=== PATIENT | female | born 1945 | race Caucasian/White ===

== ENCOUNTER 2017-07-19 10:31 | Emergency (ER) | payer MEDICARE ==
[~2017-07-19] VITALS: Ht 162.6 cm; Wt 67.3 kg
[2017-07-19 10:58] VITALS: BP 144/87; PULSE 103; RESP 18; O2SAT 97
--- NOTE | 2017-07-19 11:08 | ED.REPORT ---
HPI-Extremity Problem Lower Date of Service Jul 19, 2017 ED Provider: Nati Booker History of Present Illness: started after playing golf 1 week ago. saw primary care last week 2 times. no bowel or bladder issuestaking oxycodone. yarelishudson is primary care. 08/31lives with in 2 story house.bedroom upstairs Nursing Notes Stated Complaint: LEFT LOWER QUADRANT PAIN Chief Complaint: Extremity Trauma Nursing Notes Reviewed: Yes Allergies: Coded Allergies: oxybutynin (Verified Allergy, Severe, 07/19/17) General Time Seen by MD: 11:07 Chief Complaint Hip injury left Hx Obtained From: Patient Past Medical History Past Medical History Denies: Asthma, Diabetes mellitus Past Surgical History denies Smoking History Never Smoker Social History Alcohol Use: 1-3 per week Drug Use: Denies drug use Other Social History: Occupation no work or school 07/19/2017 Ambulatory Status Independent Physical Exam Initial Vital Signs Vital Signs (First) Date Time Temp Pulse Resp B/P Pulse Ox O2 Delivery O2 Flow Rate FiO2 07/19/17 10:58 36.8 103 18 144/87 97 Room Air Interpretation & Diagnostics Lab Results Interpretation Result Diagram: 07/19/17 1140 07/19/17 1140 Test 07/19/17 11:40 White Blood Count 6.0th/mm3 (3.8-10.1) Red Blood Count 4.50mil/mm3 (3.90-5.20) Hemoglobin 13.4g/dL (12.0-15.6) Hematocrit 40.5% (35.0-46.0) Mean Corpuscular Volume 90.0fL (81-100) Mean Corpuscular Hemoglobin 29.8pg (27.0-35.0) Mean Corpuscular Hemoglobin Concent 33.1% (32.0-37.0) Red Cell Distribution Width 12.5% (12.3-15.4) Platelet Count 205bil/L (150-400) Neutrophils (%) (Auto) 69.0% (40-74) Lymphocytes (%) (Auto) 18.5% (14-46) Monocytes (%) (Auto) 9.6% (4-12) Eosinophils (%) (Auto) 2.2% (0-5) Basophils (%) (Auto) 0.7% (0-3) Sodium Level 135mEq/L (134-144) Potassium Level 4.4mEq/L (3.5-5.2) Chloride Level 97mEq/L (97-108) Carbon Dioxide Level 24mmol/L (18-29) Blood Urea Nitrogen 18mg/dL (8-27) Creatinine 0.73mg/dL (0.57-1.00) Estimat Glomerular Filtration Rate 112mL/min (>59) Glucose Level 99mg/dL (60-99) Calcium Level 10.1mg/dL (8.5-10.1) Total Bilirubin 0.5mg/dL (0.0-1.2) Aspartate Amino Transf (AST/SGOT) 24U/L (0-50) Alanine Aminotransferase (ALT/SGPT) 19U/L (0-32) Alkaline Phosphatase 88U/L (25-165) Total Protein 7.3g/dL (6.4-8.4) Albumin 4.3g/dL (3.4-5.0) Hold [place] Top Tube Received (Received) Discharge & Departure Impression: Primary Impression: Abnormal MRI, spine Disposition: Home Patient Instructions: High Fiber Diet (ED), Lumbar Radiculopathy (ED) Additional Instructions: The MRI shows age related changes. The question is what can be done to help or improve this? You have been started on steroids, continue. Use percocet 1 up to 3 times a day as needed for severe unrelenting pain. Please call [facility] in [place] [phone], [address] [place] [address] [phone] in [place] for follow up. I am sorry this is happening. Add omeprazole to help with any possible stomach upset. Increase fiber in your diet to help with constipation. Referrals: Fahad Bonds MD (PCP) OTHER,PHYSICIAN EDSupervising Provider for APC: Kate Landers MD Attending Statement Patient seen and examined. Presents after a week of back pain now with progressive weakness in the left leg some perineal numbness and some neurologic findings involving the great toe. Pain is mostly controlled with medications from her primary care physician. Given the progressive neurologic signs agree with suggestion by Ms. Jiang to proceed with MRI. Patient has declined any additional narcotic pain medication in the emergency department if she does need to drive herself home copies to: OTHER,PHYSICIAN; Fahad Bonds MD, Sue ARNP Jul 19, 2017 11:08 Kate Landers MD Jul 19, 2017 13:04
[2017-07-19] MEDS ORDERED: Dexamethasone 20 mg/2 mL Oral Solution PO ONE (11:25)
[2017-07-19 11:51] LABS: BASOPHILS % (AUTO) 0.7 % (0-3); EOSINOPHILS % (AUTO) 2.2 % (0-5); MONOCYTES % (AUTO) 9.6 % (4-12); Mean Corpuscular Hemoglobin 29.8 pg (27.0-35.0); Platelet Count 205 bil/L (150-400)
--- NOTE | 2017-07-19 13:12 | DRSVH ---
PROCEDURE: MRI LUMBAR SPINE WITHOUT CONTRAST ([id number]) INDICATIONS: new perneal parathesia, l leg weaker TECHNIQUE: Noncontrast sagittal T1 spin echo and T2 fast echo, sagittal STIR, axial T1 and T2 fast spin echo thr ough the lumbar spine. In cases with scoliosis, additional coronal T2 fast spin echo may be performe d. COMPARISON: [facility] , MR, LUMBAR SPINE W/O CONTRAST, 04/25/2003, 12:47. FINDINGS: Image quality: Diagnostic. Spinal Cord: The imaged portions of the spinal cord are normal in size and signal. The conus medulla ris is normal in position. Paraspinous Soft Tissues: No paravertebral masses. Image soft tissues of the abdomen and pelvis are grossly unremarkable; however, not adequately evaluated on this exam. The abdominal aorta is normal in course and caliber. Bones: The vertebral body heights and marrow signal are within normal limits. There is no acute frac ture or dislocation. No suspicious osseous lesions are evident. Lower thoracic levels: No significant degenerative changes of the included lower thoracic levels are present. There is no central canal or neural foraminal narrowing at these levels. L1-L2: There is mild disc height loss and diffuse disc bulge with a left foraminal disc protrusion. Moderate facet arthropathy and ligamentum flavum laxity is present. These findings are new since the previous exam and demonstrate mild central canal stenosis, severe left neural foraminal narrowing an d moderate right neural foraminal narrowing. L2-L3: There is prominent disc height loss, diffuse disc bulge, fatty degenerative endplate changes, disc osteophyte complex and moderate facet arthropathy with ligamentum flavum laxity. These findings result in mild to moderate central canal stenosis and mild left neural foraminal narrowing. No sign ificant right neural foraminal stenosis is evident. These findings have progressed in the interim. L3-L4: There is moderate disc height loss, diffuse disc bulge, disc desiccation, degenerative endplat e edematous changes, posterior disc osteophyte complex, severe facet arthropathy, and prominent ligam entum flavum laxity. These findings result in severe central canal stenosis and mild to moderate senait ateral neural foraminal narrowing (right greater than left). These findings have significantly progr essed in the interim. L4-L5: There is disc height loss, diffuse disc bulge, degenerative endplate changes, posterior left p aracentral disc protrusion, and severe facet arthropathy with ligamentum flavum laxity. There is sev ere central canal stenosis and moderate bilateral neural foraminal narrowing (right greater than left ). These findings have significantly progressed in the interim. L5-S1: There is disc desiccation, diffuse disc bulge, moderate facet arthropathy, and ligamentum flav um laxity. These findings result in mild central canal stenosis and moderate to severe bilateral ethan ral foraminal narrowing. Again, these findings have progressed in the interim. IMPRESSION: 1. 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 2. Left foraminal disc protrusion at L1-L2 effaces the left neural foramen and exerts mass effect on the exiting nerve root. 3. Moderate left paracentral disc protrusion at L4-5 effaces the left lateral recess. Severe centra l canal stenosis at this level is related to facet and disc degenerative change. 4. No acute fractures. 5. Central canal stenosis: L1-L2 (mild), L2-L3 (mild to moderate), L2-L4 (severe), L4-L5 (severe), L 5-S1 (mild). 6. Neural foraminal stenosis: L1-L2 (severe left, moderate right), L2-L3 (mild left), L3-L4 (mild to moderate bilateral), L4-5 (moderate bilateral), L5-S1 (moderate to severe bilateral). Dictated by: Ector Reddy M.D. on 07/19/2017 at 11:39 Approved by: Ector Reddy M.D. on 07/19/2017 at 12:10
[2017-07-19 13:58] VITALS: BP 157/85; PULSE 75; RESP 16; O2SAT 98
== END 2017-07-19 13:59 | disposition home or self-care (01) ==
LOC: SED 10:31
DX: R93.7 Abnormal findings on diagnostic imaging of other parts of musculoskeletal system (principal); X58.XXXA Exposure to other specified factors, initial encounter; Y93.53 Activity, golf; Y92.89 Other specified places as the place of occurrence of the external cause; Y99.8 Other external cause status; Z88.8 Allergy status to other drugs, medicaments and biological substances